=== PATIENT | female | born 1960 | race Caucasian/White ===

== ENCOUNTER → 2020-12-20 07:59 | Outpatient (CLI) | payer OTHER, SELFPAY ==
--- NOTE | 2020-12-20 15:09 | STRESSREP_ITS ---
Stress Test Report Date: 12/20/2020 Procedure: Exercise tolerance test Indications: Shortness of breath Consent: Per the patient Procedure: The patient exercised on a Michel protocol for 10 minutes achieving a peak heart rate of 162 bpm (100% predicted maximal heart rate) with a peak blood pressure 158/80 mmHg and a peak MET capacity of approximately 13.4 MET's. The baseline ECG demonstrated normal sinus rhythm. The peak exercise ECG demonstrated no significant ischemic changes. [There were no cardiac dysrhythmias pretest, during exercise, or recovery]. The functional capacity was considered excellent for age. The patient had no complaint of chest discomfort during exercise or recovery. The examination was discontinued secondary to achieving target heart rate. Impression: 1. Technically adequate (percent predicted maximal heart rate greater than 85%) exercise tolerance test 2. Stress test is negative for exercise-induced chest pain. 3. Stress test test is negative for exercise-induced EKG changes of ischemia. 4. Functional capacity is excellent for age This note was generated with [employer] software. It may contain incorrect words, spelling, and punctuation that were not noted in checking the note before signing.
== END ==
PROVIDERS: PCP Nurse Practitioner Family; Referring Provider Registered Nurse; Visit Provider Registered Nurse
DX: Z02.5 Encounter for examination for participation in sport (principal); R06.02 Shortness of breath
CPT/HCPCS: 93017

== ENCOUNTER 2023-09-15 19:13 | Emergency (ER) | payer BC, SELFPAY ==
[2023-09-15 19:14] VITALS: BP 142/92; PULSE 67; RESP 18; TEMP 36.2; O2SAT 99; BMI 21.4
--- NOTE | 2023-09-15 19:30 | RAD_ITS ---
EXAM: XR RIGHT ELBOW COMPLETE, 3 OR MORE VIEWS CLINICAL INDICATION: Trauma TECHNIQUE: Frontal, lateral and oblique views of the right elbow. COMPARISON: No relevant prior studies available. FINDINGS: BONES/JOINTS: Unremarkable. There is no displacement of the anterior or posterior fat pads. No acute fracture. No subluxation. Normal alignment. Preservation of the joint space. No destructive or sclerotic lesions. SOFT TISSUES: Unremarkable. No soft tissue swelling or gas. No radiopaque foreign body. RAD/Elbow min 3 Views IMPRESSION: Negative right elbow. Electronically Signed: Milton Neri MD at 20:09 EDT ,
--- NOTE | 2023-09-15 19:30 | RAD_ITS ---
EXAM: XR RIGHT HIP WITH PELVIS WHEN PERFORMED, 2 OR 3 VIEWS CLINICAL INDICATION: Trauma TECHNIQUE: Two or three views of the right hip with pelvis when performed. COMPARISON: No relevant prior studies available. FINDINGS: BONES/JOINTS: Unremarkable. No displaced fracture. No destructive or sclerotic lesions. Note that overlapping bowel shadows may however obscure fine detail. Sacroiliac joint is unremarkable. No widening of the pubic symphysis. The articular structures are unremarkable. SOFT TISSUES: Unremarkable. No soft tissue swelling or gas. OTHER FINDINGS: There are tubal implants. RAD/HIP, UNI W/ Pelvis 2-3 Views IMPRESSION: No acute findings in the pelvis or right hip. Electronically Signed: Milton Neri MD at 20:10 EDT ,
[2023-09-15 20:17] VITALS: O2SAT 100
[2023-09-15 20:58] VITALS: BP 124/74; PULSE 71; RESP 16; TEMP 36.3; O2SAT 99
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
== END 2023-09-15 21:00 | disposition home or self-care (01) ==
PROVIDERS: Emergency Provider Emergency Medicine; PCP Family Medicine; Visit Provider Emergency Medicine
DX: S30.1XXA Contusion of abdominal wall, initial encounter (principal); S50.01XA Contusion of right elbow, initial encounter; S70.01XA Contusion of right hip, initial encounter; W18.09XA Striking against other object with subsequent fall, initial encounter; Y93.02 Activity, running; Y92.89 Other specified places as the place of occurrence of the external cause
CPT/HCPCS: 73080; 73502; 99282